=== PATIENT | male | born 1960 | race Caucasian/White ===

== ENCOUNTER 2020-11-07 14:58 | Inpatient (IN) ==
[2020-11-07] MEDS ORDERED: Naloxone 0.4 MG/ML INJ IVP PRN (18:02)
[2020-11-07] MEDS ORDERED: 0.9 % Sodium Chloride 1,000 ML IVC SCH (19:00)
[2020-11-07] MEDS ORDERED: Acetaminophen 325 MG TABLET PO ONE (20:41)
[2020-11-07] MEDS: Ondansetron ODT 4 MG TAB.RAPDIS SL PRN (22:22)
[2020-11-07] MEDS: *HR* HYDROcodone/Acet 5/325 mg TABLET PO PRN (22:29)
[2020-11-08 03:06] LABS: Basophils # 0.1 K/mcL (0.0-0.2); Basophils % 0.9 %; Eosinophils # 1.2 K/mcL (0.0-0.6); Eosinophils % 11.3 %; Hematocrit 27.5 % (37.5-50.1); Hemoglobin 8.2 g/dL (12.9-16.9); Immature Granulocytes % 0.5 % (0-4); Lymphocytes # 4.9 K/mcL (0.6-4.6); Lymphocytes % 46.4 %; Mean Corpuscular HGB Conc 29.8 g/dL (31.6-35.5); Mean Corpuscular Hemoglobin 24.8 pg (28.0-33.3); Mean Corpuscular Volume 83.3 fL (83.0-100.0); Mean Platelet Volume 10.9 fL (9.4-12.4); Monocytes # 0.7 K/mcL (0.0-1.3); Monocytes % 6.5 %; Neutrophils # 3.6 K/mcL (1.6-8.9); Platelet Count 392 K/mcL (140-400); Red Cell Distribution Width 16.8 % (11.5-14.5); Segmented Neutrophils % 34.4 %; White Blood Count 10.6 K/mcL (4.3-11.1)
[2020-11-08 03:26] LABS: Calcium 10.6 mg/dL (8.6-10.3); Potassium 3.8 mEq/L (3.5-5.1)
[2020-11-08] MEDS: *HR* HYDROcodone/Acet 5/325 mg TABLET PO PRN ×3 (04:31→17:10)
[2020-11-08] MEDS: 0.9 % Sodium Chloride 1,000 ML IVC SCH ×2 (11:14→20:46)
[2020-11-08] MEDS ORDERED: Ondansetron 4 MG/2 ML VIAL IVP PRN (16:15)
[2020-11-08] MEDS: cefTRIAXone 1,000 MG in Water for inj. (sterile) 10 ML IVP SCH (16:54)
[2020-11-08] MEDS: Doxycycline 100 MG CAPSULE PO SCH (20:47)
[2020-11-08] MEDS: Apixaban 5 MG TABLET PO SCH (20:47)
[2020-11-08] MEDS ORDERED: NON-FORMULARY MEDICATION 1 EACH EACH (Atorvastatin Calcium [Lipitor] 20 MG Tablet) PO SCH (21:00)
[2020-11-08] MEDS: Nystatin Cream 15 GM TUBE TP SCH (22:15)
[2020-11-09 06:21] LABS: Calcium 10.6 mg/dL (8.6-10.3); Potassium 3.7 mEq/L (3.5-5.1)
[2020-11-09 06:26] LABS: Albumin 3.1 g/dL (3.5-5.7); Albumin/Globulin Ratio 0.9 (1.1-2.2); Bilirubin,Direct 0.1 mg/dL (0.0-0.2); Bilirubin,Indirect 0.2 mg/dL (0.0-1.0); Bilirubin,Total 0.3 mg/dL (0.3-1.0); Magnesium 1.7 mg/dL (1.6-2.6); Phosphorous 4.5 mg/dL (2.7-4.5); Total Protein 6.7 g/dL (6.4-8.9); Uric Acid 5.5 mg/dL (2.3-7.6)
[2020-11-09 06:27] LABS: Globulin 3.6 g/dL (2.4-3.5)
[2020-11-09] MEDS: *HR* HYDROcodone/Acet 5/325 mg TABLET PO PRN ×3 (06:37→21:37)
[2020-11-09] MEDS ORDERED: DAPTOmycin 500 MG VIAL IVP SCH (09:00)
[2020-11-09] MEDS: Apixaban 5 MG TABLET PO SCH ×2 (10:27→21:37)
[2020-11-09] MEDS: Folic Acid 1 MG TABLET PO SCH (10:27)
[2020-11-09] MEDS: allopurinoL 100 MG TABLET PO SCH (10:27)
[2020-11-09] MEDS: Doxycycline 100 MG CAPSULE PO SCH ×2 (10:28→21:36)
[2020-11-09] MEDS: DAPTOmycin 600 MG in 0.9 % Sodium Chloride 100 ML IVPB SCH (10:45)
[2020-11-09] MEDS: Nystatin Cream 15 GM TUBE TP SCH ×2 (10:46→21:44)
[2020-11-09] MEDS: 0.9 % Sodium Chloride 1,000 ML IVC SCH ×2 (12:30→21:37)
[2020-11-09] MEDS: cefTRIAXone 1,000 MG in Water for inj. (sterile) 10 ML IVP SCH (15:32)
[2020-11-09] MEDS ORDERED: *HR* OxyCODONE Immed Rel 5 MG TABLET PO ONE (17:05)
[2020-11-10] MEDS: *HR* HYDROcodone/Acet 5/325 mg TABLET PO PRN ×4 (03:05→19:58)
[2020-11-10] MEDS: Apixaban 5 MG TABLET PO SCH ×2 (07:48→19:58)
[2020-11-10] MEDS: allopurinoL 100 MG TABLET PO SCH (07:48)
[2020-11-10] MEDS: Folic Acid 1 MG TABLET PO SCH (07:48)
[2020-11-10] MEDS: Doxycycline 100 MG CAPSULE PO SCH ×2 (07:48→19:58)
[2020-11-10] MEDS: Nystatin Cream 15 GM TUBE TP SCH ×2 (07:49→20:58)
[2020-11-10] MEDS: DAPTOmycin 600 MG in 0.9 % Sodium Chloride 100 ML IVPB SCH (07:50)
[2020-11-10 08:46] LABS: Hematocrit 27.7 % (37.5-50.1); Hemoglobin 8.3 g/dL (12.9-16.9); Mean Corpuscular Hemoglobin 25.5 pg (28.0-33.3); Mean Platelet Volume 11.1 fL (9.4-12.4); Platelet Count 373 K/mcL (140-400); Red Blood Count 3.26 M/mcL (4.19-5.50); White Blood Count 8.5 K/mcL (4.3-11.1)
[2020-11-10 09:06] LABS: BUN/Creatinine Ratio 17 (6-26); Blood Urea Nitrogen 23 mg/dL (8-23); Calcium 10.5 mg/dL (8.6-10.3); Carbon Dioxide 24 mEq/L (23-29); Chloride 109 mEq/L (98-107); Glucose 78 mg/dL (70-105); Osmolality,Calculated 299 (280-300); Potassium 3.6 mEq/L (3.5-5.1); Sodium 143 mEq/L (136-145); eGFR For African Americans > 60 (> 60); eGFR For Non-African Americans 54 (> 60)
[2020-11-10 12:23] LABS: Sodium, Urine 153.4 mEq/L
[2020-11-10] MEDS: cefTRIAXone 1,000 MG in Water for inj. (sterile) 10 ML IVP SCH (14:49)
[2020-11-10] MEDS: Nystatin POWDER 30 GM BOTTLE TP SCH (14:50)
[2020-11-11 02:48] LABS: BUN/Creatinine Ratio 16 (6-26); Blood Urea Nitrogen 19 mg/dL (8-23); Calcium 10.6 mg/dL (8.6-10.3); Carbon Dioxide 28 mEq/L (23-29); Chloride 107 mEq/L (98-107); Glucose 87 mg/dL (70-105); Osmolality,Calculated 296 (280-300); Potassium 3.8 mEq/L (3.5-5.1); Sodium 142 mEq/L (136-145); eGFR For African Americans > 60 (> 60); eGFR For Non-African Americans > 60 (> 60)
[2020-11-11] MEDS: Ondansetron ODT 4 MG TAB.RAPDIS SL PRN ×2 (09:11→21:41)
[2020-11-11] MEDS: *HR* HYDROcodone/Acet 5/325 mg TABLET PO PRN ×2 (09:11→18:44)
[2020-11-11] MEDS: Apixaban 5 MG TABLET PO SCH ×2 (09:11→21:22)
[2020-11-11] MEDS: Folic Acid 1 MG TABLET PO SCH (09:11)
[2020-11-11] MEDS: Doxycycline 100 MG CAPSULE PO SCH ×2 (09:11→21:22)
[2020-11-11] MEDS: allopurinoL 100 MG TABLET PO SCH (09:11)
[2020-11-11] MEDS: DAPTOmycin 600 MG in 0.9 % Sodium Chloride 100 ML IVPB SCH (09:12)
[2020-11-11] MEDS: Nystatin Cream 15 GM TUBE TP SCH ×2 (09:12→21:23)
[2020-11-11] MEDS: Nystatin POWDER 30 GM BOTTLE TP SCH ×2 (09:12→21:23)
[2020-11-11] MEDS: Cefdinir 300 MG CAPSULE PO SCH (21:22)
[2020-11-11] MEDS: *HR* OxyCODONE Immed Rel 5 MG TABLET PO PRN (22:27)
[2020-11-12 07:25] LABS: Hematocrit 27.1 % (37.5-50.1); Hemoglobin 8.1 g/dL (12.9-16.9); Mean Corpuscular HGB Conc 29.9 g/dL (31.6-35.5); Mean Corpuscular Hemoglobin 25.6 pg (28.0-33.3); Mean Corpuscular Volume 85.5 fL (83.0-100.0); Mean Platelet Volume 10.8 fL (9.4-12.4); Platelet Count 337 K/mcL (140-400); Red Blood Count 3.17 M/mcL (4.19-5.50); Red Cell Distribution Width 17.2 % (11.5-14.5); White Blood Count 8.8 K/mcL (4.3-11.1)
[2020-11-12 07:51] LABS: BUN/Creatinine Ratio 16 (6-26); Blood Urea Nitrogen 20 mg/dL (8-23); Calcium 10.7 mg/dL (8.6-10.3); Carbon Dioxide 26 mEq/L (23-29); Chloride 106 mEq/L (98-107); Glucose 79 mg/dL (70-105); Osmolality,Calculated 294 (280-300); Potassium 3.9 mEq/L (3.5-5.1); Sodium 141 mEq/L (136-145); Uric Acid 4.4 mg/dL (2.3-7.6); eGFR For African Americans > 60 (> 60); eGFR For Non-African Americans > 60 (> 60)
[2020-11-12] MEDS: Apixaban 5 MG TABLET PO SCH ×2 (08:56→23:51)
[2020-11-12] MEDS: Doxycycline 100 MG CAPSULE PO SCH ×2 (08:56→23:51)
[2020-11-12] MEDS: Cefdinir 300 MG CAPSULE PO SCH ×2 (08:56→23:51)
[2020-11-12] MEDS: allopurinoL 100 MG TABLET PO SCH (08:56)
[2020-11-12] MEDS: Folic Acid 1 MG TABLET PO SCH (08:56)
[2020-11-12] MEDS: *HR* HYDROcodone/Acet 5/325 mg TABLET PO PRN ×2 (08:57→15:19)
[2020-11-12] MEDS: DAPTOmycin 600 MG in 0.9 % Sodium Chloride 100 ML IVPB SCH (08:57)
[2020-11-12] MEDS: *HR* OxyCODONE Immed Rel 5 MG TABLET PO PRN (12:06)
[2020-11-12] MEDS: Nystatin Cream 15 GM TUBE TP SCH ×2 (12:07→23:54)
[2020-11-12] MEDS: Nystatin POWDER 30 GM BOTTLE TP SCH ×2 (12:07→23:54)
[2020-11-13] MEDS: allopurinoL 100 MG TABLET PO SCH (08:20)
[2020-11-13] MEDS: Doxycycline 100 MG CAPSULE PO SCH ×2 (08:20→20:51)
[2020-11-13] MEDS: Apixaban 5 MG TABLET PO SCH ×2 (08:20→20:51)
[2020-11-13] MEDS: Cefdinir 300 MG CAPSULE PO SCH ×2 (08:20→20:51)
[2020-11-13] MEDS: Nystatin POWDER 30 GM BOTTLE TP SCH ×2 (08:21→20:51)
[2020-11-13] MEDS: Nystatin Cream 15 GM TUBE TP SCH ×2 (08:21→20:51)
[2020-11-13] MEDS: DAPTOmycin 600 MG in 0.9 % Sodium Chloride 100 ML IVPB SCH (08:21)
[2020-11-13] MEDS: Folic Acid 1 MG TABLET PO SCH (08:21)
[2020-11-13] MEDS: *HR* HYDROcodone/Acet 5/325 mg TABLET PO PRN ×2 (08:34→17:51)
[2020-11-14] MEDS: *HR* HYDROcodone/Acet 5/325 mg TABLET PO PRN ×2 (10:01→20:56)
[2020-11-14] MEDS: Apixaban 5 MG TABLET PO SCH ×2 (10:01→20:57)
[2020-11-14] MEDS: allopurinoL 100 MG TABLET PO SCH (10:01)
[2020-11-14] MEDS: Cefdinir 300 MG CAPSULE PO SCH ×2 (10:02→20:56)
[2020-11-14] MEDS: Doxycycline 100 MG CAPSULE PO SCH ×2 (10:02→20:56)
[2020-11-14] MEDS: Folic Acid 1 MG TABLET PO SCH (10:02)
[2020-11-14] MEDS: Nystatin POWDER 30 GM BOTTLE TP SCH ×2 (10:18→20:57)
[2020-11-14] MEDS: Nystatin Cream 15 GM TUBE TP SCH ×2 (10:18→20:57)
[2020-11-14] MEDS: DAPTOmycin 600 MG in 0.9 % Sodium Chloride 100 ML IVPB SCH (11:23)
[2020-11-14] MEDS: *HR* OxyCODONE Immed Rel 5 MG TABLET PO PRN (21:54)
[2020-11-15] MEDS: allopurinoL 100 MG TABLET PO SCH (09:17)
[2020-11-15] MEDS: Doxycycline 100 MG CAPSULE PO SCH (09:17)
[2020-11-15] MEDS: Folic Acid 1 MG TABLET PO SCH (09:17)
[2020-11-15] MEDS: *HR* HYDROcodone/Acet 5/325 mg TABLET PO PRN ×2 (09:17→15:48)
[2020-11-15] MEDS: DAPTOmycin 600 MG in 0.9 % Sodium Chloride 100 ML IVPB SCH (09:17)
[2020-11-15] MEDS: Apixaban 5 MG TABLET PO SCH (09:17)
[2020-11-15] MEDS: Cefdinir 300 MG CAPSULE PO SCH (09:18)
[2020-11-15] MEDS: *HR* OxyCODONE Immed Rel 5 MG TABLET PO PRN (12:07)
[2020-11-15] MEDS: Nystatin POWDER 30 GM BOTTLE TP SCH (15:50)
[2020-11-15] MEDS: Nystatin Cream 15 GM TUBE TP SCH (15:50)
[2020-11-15 16:46] LABS: Adenovirus Not Detected (Not Detect); Bordetella Pertussis Not Detected (Not Detect); Chlamydophila pneumoniae Not Detected (Not Detect); Coronavirus 229E Not Detected (Not Detect); Coronavirus HKU1 Not Detected (Not Detect); Coronavirus NL63 Not Detected (Not Detect); Coronavirus OC43 Not Detected (Not Detect); Human Metapneumovirus Not Detected (Not Detect); Human Rhinovirus/Enterovirus Not Detected (Not Detect); Influenza A Subtype 2009 H1 Not Detected (Not Detect); Influenza B Not Detected (Not Detect); Mycoplasma pneumoniae Not Detected (Not Detect); Parainfluenza Virus 1 Not Detected (Not Detect); Parainfluenza Virus 2 Not Detected (Not Detect); Parainfluenza Virus 3 Not Detected (Not Detect); Parainfluenza Virus 4 Not Detected (Not Detect); Respiratory Syncytial Virus Not Detected (Not Detect); SARS-CoV-2 Not Detected (Not Detect)
[2020-11-15 18:40] VITALS: BP 104/64
== END 2020-11-15 19:50 | DRG 698 ==
LOC: 2ANU → SUATTDRO 16:42
PROVIDERS: ADMIT Internal Medicine; ATTEND Family Medicine